=== PATIENT | female | born 2000 | race Caucasian/White ===

== ENCOUNTER 2025-02-12 11:31 | Emergency (ER) | payer MEDICAID, SELFPAY ==
[2025-02-12] MEDS ORDERED: Ibuprofen 200 MG TAB ONE (12:52)
[2025-02-12] MEDS ORDERED: Metoclopramide HCl 10 MG (2 mL) VIAL ONE (14:27)
[2025-02-12] MEDS ORDERED: diphenhydrAMINE 50 MG/ML VIAL ONE (14:27)
[2025-02-12] MEDS ORDERED: Dexamethasone 10 MG/ML VIAL ONE (14:27)
[2025-02-12 14:55] LABS: #Basophils 0.03 10x3/uL (0.0-0.2); #Eosinophils 0.13 10x3/uL (0.0-0.7); #Monocytes 0.64 10x3/uL (0.11-0.59); #Neutrophils 4.51 10x3/uL (1.40-6.50); %Basophils 0.4 % (0.0-1.0); %Eosinophils 1.8 % (0.0-10.0); %Lymphocytes 26.7 % (21.0-51.0); %Monocytes 8.8 % (0.0-10.0); %Neutrophils 62.0 % (42.0-75.0); Hematocrit 40.3 % (36.0-47.0); Hemoglobin 13.4 g/dL (12.0-16.0); Mean Corpuscular Hemoglobin 25.7 pg (27.0-31.0); Mean Corpuscular Volume 77.4 fL (78.0-98.0); Platelet Count 258 10x3/uL (130-400); Red Blood Cell (RBC) Count 5.21 mill/uL (4.20-5.40); White Blood Cell (WBC) Count 7.27 10x3/uL (4.8-10.8)
[2025-02-12 15:18] LABS: ALT (SGPT) 29 U/L (Less than 34); AST (SGOT) 32 U/L (11-34); Albumin 4.1 g/dL (3.1-4.5); Alkaline Phosphatase 107 U/L (40-110); Anion Gap 12 mmol/L (10-20); BUN (Urea Nitrogen) 7 mg/dL (7.0-18.7); Bilirubin, Total 0.3 mg/dL (0.3-1.2); Calc. Creatinine Clearance 0 mL/min (70-130); Calcium 9.8 mg/dL (7.8-10.44); Carbon Dioxide 24 mmol/L (22-29); Chloride 106 mmol/L (98-107); Globulin 3.3 g/dL (2.4-3.5); Glucose 89 mg/dL (70-105); Potassium 3.9 mmol/L (3.5-5.1); Sodium 138 mmol/L (136-145)
== END 2025-02-12 16:40 | disposition home or self-care (01) ==
LOC: ERS 11:31
DX: R51.9 Headache, unspecified (principal)
CPT/HCPCS: 80053; 84702; 85025; J1100; J1200; J2765